=== PATIENT | female | born 1970 | race Caucasian/White ===

== ENCOUNTER 2019-08-21 17:05 | Emergency (ER) | payer OTHER ==
[2019-08-21] MEDS ORDERED: NS 0.9% 1000 ML** 1,000 ML IV ONE (17:11)
--- NOTE | 2019-08-21 17:23 | ED ---
Syncope/Near Syncope - HPI Summary HPI Summary: 49-year-old female with a significant past medical history of migraine headaches presents to the emergency department today after recently starting comprising at work at [employer] where she was found by coworkers and thought to be having seizure-like activity according to EMS. Patient is currently in no acute distress however there is noted edema and ecchymosis surrounding the right orbit. There is also a noted deep laceration superior to the right orbit. Patient is alert and oriented 3. She states she does not recall the event however she felt well this morning and had migraine symptoms earlier in the day and then she does not recall syncopizing. She recalls waking up in the ambulance but does not really remember the event. Patient denies incontinence or tongue biting. Patient denies recent medication changes and denies recent alcohol or drug use. Patient states she did have lunch this evening. Patient does not have a past medical history of epilepsy. Patient otherwise feels well and denies fevers, chills, abdominal pain, shortness of breath, cough, headache at this time, neck pain, tremor. Sx hx and family hx noncontributory. Patient does not have a bleeding disorder and is not on anticoagulation therapy. - History Of Current Complaint Time Seen by Provider: 08/21/19 17:11 Hx Obtained From: Patient Onset/Duration: Sudden Onset Timing: Constant Context: Witnessed, Loss Of Consciousness Activity At Onset: Unknown Associated Head Trauma: Yes Associated Signs And Symptoms: Headache - Allergies/Home Medications Allergies/Adverse Reactions: Allergies Allergy/AdvReac Type Severity Reaction Status Date / Time bupropion [From Wellbutrin] Allergy Hives Verified 08/21/19 20:04 Home Medications: Home Medications Levothyroxine TAB* [Synthroid TAB*] 50 mcg PO DAILY 08/21/19 [History Confirmed 08/21/19] Review of Systems Constitutional: Negative Eyes: Negative ENT: Negative Cardiovascular: Negative Respiratory: Negative Gastrointestinal: Negative Genitourinary: Negative Positive: Edema Positive: Bruising Positive: Headache, Syncope Psychological: Normal All Other Systems Reviewed And Are Negative: Yes Physical Exam - Summary Physical Exam Summary: Patient is in no acute distress. Patient is alert and oriented 3 and does not appear to be postictal. Inspection reveals ecchymosis and edema surrounding the right orbit. There is a noted 4 cm in length by approximately 0.5 cm deep laceration superior to the right orbit. No involvement of the orbit itself. No cranial nerve palsies appreciated on the right. No impairment of the extraocular muscles. Patient is resting comfortable in the stretcher at this time. No midline neck tenderness. No neurologic deficits at this time. Triage Information Reviewed: Yes Vital Signs Reviewed: Yes Appearance: Positive: Well-Appearing, No Pain Distress, Well-Nourished Skin: Positive: Warm, Skin Color Reflects Adequate Perfusion Eyes: Positive: EOMI, ERICKSON ENT: Positive: Hearing grossly normal Respiratory/Lung Sounds: Positive: Clear to Auscultation, Breath Sounds Present Cardiovascular: Positive: RRR, S1, S2 Abdomen Description: Positive: Nontender, No Organomegaly Bowel Sounds: Positive: Present Musculoskeletal: Positive: Strength/ROM Intact Neurological: Positive: Sensory/Motor Intact, Alert, Oriented to Person Place, Time, Facial Symmetry, Speech Normal. Negative: Cerebellar Dysfunction, Disoriented Psychiatric: Positive: Normal, Affect/Mood Appropriate AVPU Assessment: Alert Procedures - Sedation Patient Received Moderate/Deep Sedation with Procedure: No - Laceration/Wound Repair 1 Location: face Description: Linear Anesthesia: Local, 1.0% Length, Depth and Shape: 3cm length, 1cm deep Irrigated w/ Saline (ccs): 200 Laceration/Wound Explored: clean Closure: Multilayer Suture Type: Nylon, Chromic Number of Sutures: 4 - 3 deep sutures using 4-0 vicryl, 1 running subcuticular using 5-0 rapid gut Layer Closure?: Yes - dermabond skin adhesive applied to exterior of the wound Sterile Dressing Applied?: No Diagnostics - Laboratory Result Diagrams: 08/21/19 18:50 08/21/19 18:50 Lab Statement: Any lab studies that have been ordered have been reviewed, and results considered in the medical decision making process. Course/Dx Course Of Treatment: patient was evaluated in the emergency department today for syncope and possible seizure-like activity. Patient was seen and examined her vitals are stable and she is afebrile. EKG was done promptly which shows no evidence of STEMI. Normal sinus rhythm at a rate of 89 bpm. Normal LA and QTc intervals. Normal axis. There are no priors available for comparison. laboratory studies returned showing no significant electrolyte abnormalities. Lactic acid is elevated at 2.7, WBC 11.8, These values are thought to be due to the patients syncopal event and trauma, no further evidence of infection. CT of the brain and Cspine negative for pathology. Neurologist, Dr. White was consulted who agreed to examine the patient in his office on 08/24/19 to investigate possible seizure like activity. Pt not started on anti seizure medications as the cause of her syncope is not clear according to Dr. White. Pt laceration repaied and tolerated well. PT discharged with outpatient follow up. - Diagnoses Differential Diagnosis/HQI/PQRI: Positive: Cerebral Vascular Accident, Dysrhythmia, Hypoglycemia, Metabolic Reaction, Seizure, Vasovagal Episode Provider Diagnoses: Syncope, Laceration - Physician Notifications Discussed Care of Patient With: Lamberto White - Agree to see patient on . Do not start pt on antiseizure medications. Do not have pt drive until seen. Instructed by Provider To: Have Pt Call For Appt. Discharge ED - Sign-Out/Discharge Documenting (check all that apply): Patient Departure - Discharge Plan Condition: Stable Disposition: HOME Patient Education Materials: Syncope (ED) Referrals: Lamberto White MD [Medical Doctor] - 3 Days Non Staff,Doctor [Medical Doctor] - Additional Instructions: You were seen in the emergency department today due to a syncopal episode at work. Imaging was done and no evidence of fractures or intracranial bleeds were found as a result of this. You did sustain a laceration to your head which was closed with subcutaneous sutures. These do not need to be removed. Please keep the wound dry for 12 hours and then you may rinse it with warm soapy water and pat it dry. Please follow up with your primary care provider in 5 days for wound check. There is also a possibility that the syncopal episode was due to a seizure. Please follow-up with the neurologist, Dr. White on Saturday for further evaluation and management. Until you're seen by neurology please do not drive or return to work. Please rest and stay hydrated and try to get as much sleep as possible to reduce the chance of having a similar event. In the case do have another syncopal episode please return to emergency department immediately. Please call Dr. White's office on Saturday for an appointment. - Billing Disposition and Condition Condition: STABLE Disposition: Home
[2019-08-21] MEDS ORDERED: Ondansetron ODT TAB* 4 MG SL ONE (18:44)
[2019-08-21 19:05] LABS: ABS Eosinophils 0.1 10^3/ul (0-0.6); ABS Lymphocytes 1.1 10^3/ul (1.0-4.8); ABS Monocytes 0.5 10^3/ul (0-0.8); ABS Neutrophils 10.1 10^3/ul (1.5-7.7); Eosinophil % 0.6 %; Hematocrit 37 % (35-47); Hemoglobin 13.2 g/dL (12.0-16.0); Lymphocyte % 9.4 %; Mean Corpuscular HGB Conc 35 g/dL (31-36); Mean Corpuscular Hemoglobin 33 pg (27-31); Mean Corpuscular Volume 93 fL (80-97); Mean Platelet Volume 8.6 fL (7.4-10.4); Platelet Count 204 10^3/uL (150-450); Red Cell Distribution Width 13 % (10-15); White Blood Count 11.8 10^3/uL (3.5-10.8)
[2019-08-21 19:09] LABS: INR 0.92 (0.82-1.09)
[2019-08-21 19:13] LABS: Chloride 105 mmol/L (101-111); Potassium 3.4 mmol/L (3.5-5.0); Sodium 138 mmol/L (135-145)
[2019-08-21 19:22] LABS: HCG Pregnancy < 0.60 mIU/mL
[2019-08-21] MEDS ORDERED: Lidocaine 1% INJ* 10 MG/ML 30 ML SDV INJ ONE (19:47)
[2019-08-21 20:21] LABS: Urine Appearance Clear; Urine Bilirubin Negative (Negative); Urine Blood 1+ (Negative); Urine Color Yellow; Urine Glucose Negative (Negative); Urine Ketones Negative (Negative); Urine Nitrite Negative (Negative); Urine Protein Negative (Negative); Urine Specific Gravity 1.011 (1.010-1.030); Urine Urobilinogen Negative (Negative)
[2019-08-21 20:30] LABS: Urine Bacteria Absent (Absent); Urine Red Blood Cell Trace(0-2/hpf) (Absent); Urine Squamous Epithelial Cell Present (Absent); Urine White Blood Cell Trace(0-5/hpf) (Absent)
[2019-08-21 21:12] LABS: Anion Gap 15 mmol/L (2-11); CO2 Carbon Dioxide 18 mmol/L (22-32); Calcium 8.5 mg/dL (8.6-10.3)
[2019-08-21 21:18] LABS: ALT 10 U/L (7-52); AST 16 U/L (13-39); Albumin/Globulin Ratio 1.5 (1-3); Alkaline Phosphatase 52 U/L (34-104); BUN/Creatinine Ratio 18.5 (8-20); Blood Urea Nitrogen 20 mg/dL (6-24); EGFR African American 65.5 (>60); EGFR Non-African American 54.1 (>60); Globulin 2.6 g/dL (2-4); Glucose 95 mg/dL (70-100); Total Protein 6.6 g/dL (6.4-8.9)
[2019-08-21] MEDS ORDERED: Ibuprofen TAB* 600 MG PO ONE (22:08)
[2019-08-21 22:47] VITALS: BP 138/84
== END 2019-08-21 23:06 | disposition home or self-care (01) ==
LOC: ED 17:05
DX: S01.81XA Laceration without foreign body of other part of head, initial encounter (principal); R55 Syncope and collapse; X58.XXXA Exposure to other specified factors, initial encounter; Y92.214 College as the place of occurrence of the external cause; Y99.0 Civilian activity done for income or pay; E03.9 Hypothyroidism, unspecified; Z79.890 Hormone replacement therapy; Z88.8 Allergy status to other drugs, medicaments and biological substances
CPT/HCPCS: 12013; 36415; 70450; 70486; 72125; 80053; 81003; 81015; 83605; 83735; 84484; 84702; 85025; 85610; 87077; 87086; 93005; 96360; 99284; A9270-GY